=== PATIENT | female | born 1965 | race Caucasian/White ===

== ENCOUNTER → 2021-03-17 16:52 | Outpatient (CLI) | payer OTHER, SELFPAY ==
[2021-03-17 17:08] LABS: Bacteria Urine None Seen; WBC Urine None Seen (0-5/HPF)
[2021-03-17 18:02] LABS: Appearance Urine UA CLEAR; Bilirubin Urine UA NEGATIVE (NEGATIVE); Color Urine UA YELLOW; Glucose Urine UA NEGATIVE (Negative); Ketones Urine UA NEGATIVE (NEGATIVE); Leukocyte Esterase Urine UA NEGATIVE (NEGATIVE); Nitrite Urine UA NEGATIVE (Negative); Occult Blood Urine UA 1+ (Negative); Protein Urine UA NEGATIVE (Negative); Urobilinogen Urine UA 0.2 E.U./dL (0.2)
[2021-03-17 18:04] LABS: Add Manual Diff / Slide Review NO; Basophils Absolute Auto 100 /uL (0-100); Basophils Percent Auto 0.7 % (0-2); Eosinophils Absolute Auto 200 /uL (0-450); Eosinophils Percent Auto 2.3 % (2-4); Hematocrit 44.1 % (36-46); Hemoglobin 14.8 g/dL (12.0-16.0); Lymphocytes Absolute Auto 2500 /uL (1100-4500); Lymphocytes Percent Auto 27.5 % (25-40); Mean Corpuscular HGB Conc 33.7 % (30-36); Mean Corpuscular Hemoglobin 30.8 PG (26-34); Mean Corpuscular Volume 91.6 fL (80-100); Monocytes Absolute Auto 600 /uL (0-900); Monocytes Percent Auto 6.7 % (3-14); Neutrophils Absolute Auto 5600 /uL (1500-7000); Neutrophils Percent Auto 62.8 % (50-75); Platelet Count 212 X10^3/uL (150-400); Red Blood Cell Count 4.81 X10^6/uL (4.0-5.2); Red Cell Distribution Width 13.1 % (11.6-14.8); White Blood Cell Count 8.9 X10^3/uL (4.5-11.0)
[2021-03-17 18:14] LABS: Hemoglobin A1C% w Est Avg Glu 5.2 % (4.0-6.0)
[2021-03-17 18:15] LABS: Blood Urea Nitrogen 17 mg/dL (7-17); Calcium 9.6 mg/dL (8.4-10.2); Carbon Dioxide 28 mmol/L (22-32); Chloride 106 mmol/L (98-107); Estimated Glomerular Filt Rate > 60.0 mL/min (>60); Glucose 96 mg/dL (70-100); HEMOLYSIS < 15 (0-50); Potassium 3.8 mmol/L (3.4-5.1); Sodium 141 mmol/L (137-145)
[2021-03-17 18:21] LABS: Culture Indicated Urine Cult Not Indicated; RBC Urine 1-5/HPF (0-5/HPF)
== END ==
PROVIDERS: Referring Provider Orthopaedic Surgery; Visit Provider Orthopaedic Surgery
DX: Z01.818 Encounter for other preprocedural examination (principal); Z01.812 Encounter for preprocedural laboratory examination; R73.9 Hyperglycemia, unspecified; N39.0 Urinary tract infection, site not specified
CPT/HCPCS: 36415; 80048; 81001; 83036; 85025; 93005; 93010

== ENCOUNTER → 2023-06-09 14:29 | Outpatient (CLI) | payer OTHER, SELFPAY ==
--- NOTE | 2023-06-09 | DI.CT.S_ITS ---
PROCEDURE: CT SINUS SCREEN WO CON INDICATIONS: Chronic pansinusitis TECHNIQUE: Noncontrast 3.0 mm axial images acquired from the frontal sinuses to the mid-sella, with coronal and sagittal reformats. For radiation dose reduction, the following was used: automated exposure control, adjustment of mA and/or kV according to patient size. COMPARISON: None. FINDINGS: Image quality: Excellent. Sinuses: Sinuses are clear. No fluid levels. No mucous retention cysts or polyps. 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 Ostiomeatal Complexes: Ostiomeatal complexes are patent. Miscellaneous: Visualized intra-orbital contents are normal. No esperanza bullosa or paradoxical turbinate curvature. Rightward nasal septal deviation. IMPRESSION: Sinuses and ostiomeatal complexes are clear. Dictated by: Darlyn Salguero M.D. on 06/09/2023 at 15:30 Approved by: Darlyn Salguero M.D. on 06/09/2023 at 15:32
[2023-06-09 17:03] LABS: Add Manual Diff / Slide Review NO; Basophils Absolute Auto 100 /uL (0-100); Basophils Percent Auto 0.9 % (0-2); Eosinophils Absolute Auto 200 /uL (0-450); Eosinophils Percent Auto 2.8 % (2-4); Hematocrit 42.3 % (36-46); Hemoglobin 14.5 g/dL (12.0-16.0); Lymphocytes Absolute Auto 2600 /uL (1100-4500); Lymphocytes Percent Auto 32.7 % (25-40); Mean Corpuscular HGB Conc 34.2 % (30-36); Mean Corpuscular Hemoglobin 30.9 PG (26-34); Mean Corpuscular Volume 90.3 fL (80-100); Monocytes Absolute Auto 500 /uL (0-900); Monocytes Percent Auto 6.7 % (3-14); Neutrophils Absolute Auto 4500 /uL (1500-7000); Neutrophils Percent Auto 56.9 % (50-75); Platelet Count 226 X10^3/uL (150-400); Red Blood Cell Count 4.68 X10^6/uL (4.0-5.2); Red Cell Distribution Width 12.9 % (11.6-14.8); White Blood Cell Count 7.9 X10^3/uL (4.5-11.0)
[2023-06-09 17:12] LABS: BUN Creatinine Ratio 22.4 (6-22); Blood Urea Nitrogen 15 mg/dL (7-17); Calcium 9.7 mg/dL (8.4-10.2); Carbon Dioxide 28 mmol/L (22-32); Chloride 102 mmol/L (98-107); Estimated Glomerular Filt Rate > 60 mL/min (>60); Glucose 90 mg/dL (70-100); HEMOLYSIS < 15 (0-50); Sodium 140 mmol/L (137-145)
[2023-06-09 17:18] LABS: Hemoglobin A1C% w Est Avg Glu 5.5 % (4.0-6.0)
[2023-06-09 18:28] LABS: Appearance Urine UA CLEAR; Bilirubin Urine UA NEGATIVE (NEGATIVE); Color Urine UA YELLOW; Glucose Urine UA NEGATIVE (Negative); Ketones Urine UA NEGATIVE (NEGATIVE); Leukocyte Esterase Urine UA NEGATIVE (NEGATIVE); Nitrite Urine UA NEGATIVE (Negative); Occult Blood Urine UA TRACE-INTACT (Negative); Protein Urine UA NEGATIVE (Negative); Specific Gravity Urine UA 1.015 (1.000-1.035); Urobilinogen Urine UA 0.2 E.U./dL (0.2)
[2023-06-09 18:35] LABS: pH Urine UA 6.5 (4.5-8.0)
[2023-06-09 19:32] LABS: Bacteria Urine None Seen; Culture Indicated Urine Cult Not Indicated; RBC Urine None Seen (0-5/HPF); Squamous Epithelial Cell Urine None Seen (0-5/HPF); WBC Urine None Seen (0-5/HPF)
== END ==
PROVIDERS: Referring Provider Otolaryngology; Visit Provider Otolaryngology
DX: Z01.818 Encounter for other preprocedural examination (principal); Z01.812 Encounter for preprocedural laboratory examination; J32.4 Chronic pansinusitis; J34.89 Other specified disorders of nose and nasal sinuses; G44.89 Other headache syndrome; R09.82 Postnasal drip; R73.9 Hyperglycemia, unspecified; N39.0 Urinary tract infection, site not specified
CPT/HCPCS: 36415; 70486; 80048; 81001; 83036; 85025; 93005; 93010

== ENCOUNTER 2023-12-19 21:26 | Emergency (ER) | payer OTHER, SELFPAY ==
[2023-12-19] VITALS (7 sets, daily range): BP systolic 131–184; BP diastolic 63–85; PULSE 69–89; RESP 18; TEMP 37.3; O2SAT 95–98; BMI 39.4
--- NOTE | 2023-12-19 23:21 | ED.SKABFB ---
HPI - Skin/Abscess/Foreign Bdy General Chief complaint: Skin/Abscess/Foreign Body Stated complaint: possible allergic reaction Time Seen by Provider: 12/19/23 21:30 Source: patient Mode of arrival: Ambulatory Limitations: no limitations History of Present Illness HPI narrative: 58-year-old female presents for evaluation of possible allergic reaction. Patient underwent knee replacement surgery at [facility] approximately 1 week ago. She states that since then she has been wearing a compression stocking that she believes is too small, with an Edson wrap over the compression stocking. Approximately 2 days ago she started to have an itching rash behind her right leg. Patient concerned that she may have had an allergic reaction to 1 of the medications she has been given. She has been taking Tylenol, meloxicam, aspirin, and oxycodone for pain at home. After reading the bottle information of all of her medications she and her has been were concerned that she may be having an allergic reaction to Tylenol. Patient denies nausea, vomiting, difficulty breathing, tongue or lip swelling. Patient states that she has and agitation reaction to Benadryl and has not taken any of this medication at home. Related Data Allergies Allergy/AdvReac Type Severity Reaction Status Date / Time narcotics AdvReac Nausea Uncoded 12/19/23 21:40 Review of Systems Review of Systems Narrative: See HPI Patient History Social History Smoking Status: Never smoker Smoking Status: Never smoker alcohol intake frequency: holidays/special occasions only Substance Use Type: does not use Exam Initial Vital Signs Initial Vital Signs: Vital Signs Pulse Rate 89 12/19/23 21:33 Pulse Oximetry 97 12/19/23 21:33 Const: Awake, alert, no acute distress, nontoxic appearing Cardiac: regular rate, regular rhythm RESP: unlabored, clear bilaterally, no wheezing GI: Soft, nontender, nondistended, no rebound, no guarding MSK: Clean, dry dressing over right knee replacement surgical site, dependent bruising noted at thigh and lower extremity Skin: intact, erythematous, itching rash over posterior R thigh and posterior knee with defined margins. Neuro: AO x3, CN II-XII grossly intact, moves all extremities Course Orders Ordered: Discontinued Medications Dexamethasone (Dexamethasone 10 Mg/Ml Vial) 10 mg IV NOW ONE Stop: 12/19/23 23:15 Last Admin: 12/19/23 23:33 Dose: 10 mg Documented By: STAN Famotidine (Famotidine 20 Mg/2 Ml Vial) 20 mg IV NOW AYDE Last Admin: 12/19/23 23:36 Dose: 20 mg Documented By: STAN Vital Signs Vital signs: Vital Signs - 8 hr 12/19/23 21:33 12/19/23 21:34 12/19/23 21:40 Temperature 99.1 F Pulse Rate 89 87 88 Respiratory Rate 18 Blood Pressure 184/85 H Pulse Oximetry 97 96 96 Oxygen Delivery Method Room Air 12/19/23 22:00 12/19/23 22:00 12/19/23 22:30 Temperature Pulse Rate 82 Respiratory Rate Blood Pressure 141/71 H 131/63 Pulse Oximetry 95 Oxygen Delivery Method 12/19/23 22:30 12/19/23 23:00 12/19/23 23:00 Temperature Pulse Rate 74 71 Respiratory Rate Blood Pressure 149/69 H Pulse Oximetry 97 98 Oxygen Delivery Method 12/19/23 23:30 Temperature Pulse Rate 69 Respiratory Rate 18 Blood Pressure Pulse Oximetry 98 Oxygen Delivery Method MDM - Skin/Abscess/Foreign Bdy Differential Diagnosis Differential diagnosis: Likely abscess of skin or subcutaneous tissue, viral exanthem and dermatophytosis MDM Narrative Medical decision making narrative: Possible allergic reaction. Patient was concerned that this may be related to Tylenol, however the rash is very localized and only on the posterior aspect of the patient's distal right thigh, posterior knee, and upper right calf. Superior margin is well defined and quite possibly related to compression stocking worn after her procedure. Patient states she was unable to take Benadryl due to agitation, however steroids were ordered which should help patient's symptoms. Patient advised to follow up with her orthopedic doctor and to apply steroid cream that can be purchased [id number] to the area of the rash. Advised patient that this is likely not an allergic reaction to Tylenol and encouraged to continue to take this medication for pain as needed Discharge Plan Departure Patient Disposition: Home Clinical Impression: Allergic reaction Instructions: DI for Contact Dermatitis Activity Restrictions/Additional Instructions: Continue to take your home pain medications as prescribed. You may use over the counter bendaryl or steroid cream for itching. Follow up with your orthopedic doctor Referrals: Danielle Faria ARNP [Primary Care Provider] - Stand Alone Forms: Patient Portal/API
[2023-12-19] MEDS: DEXAMETHASONE 10 MG/ML VIAL IV (23:33)
[2023-12-19] MEDS: FAMOTIDINE 20 MG/2 ML VIAL IV (23:36)
[2023-12-20 00:17] VITALS: BP 165/81; PULSE 69; RESP 16; O2SAT 98
== END 2023-12-20 00:19 | disposition home or self-care (01) ==
PROVIDERS: Emergency Provider Emergency Medicine; PCP Nurse Practitioner Family
DX: T78.40XA Allergy, unspecified, initial encounter (principal)
CPT/HCPCS: 96374; 96375; 99283; J1100

== ENCOUNTER → 2025-02-04 14:23 | Outpatient (CLI) | payer OTHER, SELFPAY ==
--- NOTE | 2025-02-04 14:25 | DI.MG.S_ITS ---
MM screening mammo BI: 02/04/2025. BI-RADS: 0 CLINICAL: 59-year old female for bilateral screening mammogram. Tyrer-Cuzick lifetime risk of 16.8%. Current reported family history of breast cancer: sister. PRIOR EXAMS: 09/24/2020. MAMMOGRAPHY TECHNIQUE: 2D and 3D (tomosynthesis) digital mammographic views obtained, with additional images as needed for full coverage. Current study was also evaluated with a Computer Aided Detection (CAD) system. DENSITY B. There are scattered areas of fibroglandular density. MAMMOGRAPHY FINDINGS Right: Central, Retroareolar, Far Anterior depth: Focal asymmetry needing additional imaging evaluation. Left: Upper Inner Quadrant, Middle depth: Calcifications needing additional imaging evaluation. IMPRESSION: Right (Asymmetry): Central, Retroareolar, Far Anterior depth * Incomplete - focal asymmetry needing additional imaging evaluation. Left (Calcification): Upper Inner Quadrant, Middle depth * Incomplete - calcification needing additional imaging evaluation. RECOMMENDATIONS Right: Central, Retroareolar, Far Anterior depth * Further evaluation with diagnostic mammography and diagnostic ultrasound. Ultrasound to be performed only if needed. Left: Upper Inner Quadrant, Middle depth * Further evaluation with diagnostic mammography. OVERALL ASSESSMENT CATEGORY BI-RADS-0: Incomplete - Need Additional Imaging Evaluation. ELECTRONICALLY SIGNED: Leonor Barrera M.D. on 02/04/2025 at 03:56:06 PM PT Interpreting Station ID: [id number]
== END ==
PROVIDERS: PCP Nurse Practitioner Family; Referring Provider Nurse Practitioner; Visit Provider Nurse Practitioner
DX: Z12.31 Encounter for screening mammogram for malignant neoplasm of breast (principal); Z80.3 Family history of malignant neoplasm of breast
CPT/HCPCS: 77063; 77067

== ENCOUNTER → 2025-02-20 09:20 | Outpatient (CLI) | payer OTHER, SELFPAY ==
--- NOTE | 2025-02-20 09:21 | DI.MG.S_ITS ---
US breast BI limited, MM diagnostic mammo BI: 02/20/2025 BI-RADS: 4C CLINICAL: 59-year old female for bilateral diagnostic mammogram and bilateral diagnostic breast ultrasound that is a recall from screening on 02/04/2025. Tyrer-Cuzick lifetime risk of 16.8%. Current reported family history of breast cancer: sister. PRIOR EXAMS Mammogram(s): 02/04/2025, 09/24/2020. MAMMOGRAPHY TECHNIQUE: 2D and 3D (tomosynthesis) digital mammographic views obtained, with additional images as needed for full coverage. Current study was also evaluated with a Computer Aided Detection (CAD) system. ULTRASOUND TECHNIQUE Real-time silva scale and color doppler imaging of the area of clinical interest was performed with image documentation. TARGETED Bilateral Breast Ultrasound: Real-time ultrasound exam was performed focused to area of clinical and/or imaging concern. DENSITY B. There are scattered areas of fibroglandular density. MAMMOGRAPHY FINDINGS Right (finding-1): Central, Retroareolar, Far Anterior depth, measuring 0.8cm: There is a circumscribed, oval, equal-density mass present. Left: Upper Inner at 11:00, Middle depth, measuring 3.3cm: There are suspicious fine pleomorphic calcifications in segmental distribution. ULTRASOUND FINDINGS Right (finding-1): Upper at 12:00, 1 cm from nipple, measuring 0.7 x 0.3 x 0.9 cm. Previous report: Central: Correlating with findings on mammogram there is a complicated cyst present. Left: Upper Inner at 11:00, 8 cm from nipple, measuring 0.3 x 0.2 x 0.2 cm: There is a complicated cyst present. This is an incidental finding. No definite sonographic correlate for the calcifications seen on mammogram. Left: Inner at 9:00, 2 cm from nipple, measuring 0.5 x 0.3 x 0.5 cm: There is a complicated cyst present. This is an incidental finding. IMPRESSION: Right (Complicated Cyst): Upper at 12:00, 1 cm from nipple, measuring 0.7 x 0.3 x 0.9 cm. Previous report: Central * Probably Benign. Left (Calcification): Upper Inner at 11:00, Middle depth, measuring 3.3cm * High Suspicion for Malignancy. Left (Complicated Cyst): Upper Inner at 11:00, 8 cm from nipple, measuring 0.3 x 0.2 x 0.2 cm * Probably Benign. Left (Complicated Cyst): Inner at 9:00, 2 cm from nipple, measuring 0.5 x 0.3 x 0.5 cm * Probably Benign. RECOMMENDATIONS Right: Upper at 12:00, 1 cm from nipple * Six month followup with diagnostic ultrasound and diagnostic mammography. Left: Upper Inner at 11:00, 8 cm from nipple * Six month followup with diagnostic ultrasound and diagnostic mammography. Mammography to be performed only if needed. Left: Inner at 9:00, 2 cm from nipple * Six month followup with diagnostic ultrasound and diagnostic mammography. Mammography to be performed only if needed. Left: Upper Inner at 11:00, Middle depth * Stereotactic-guided biopsy for further evaluation. COMMENTS: Findings and recommendations were conveyed to the patient during today's evaluation over the phone by Dr. Barrera. OVERALL ASSESSMENT CATEGORY BI-RADS-4: Suspicious. PRELIMINARILY ELECTRONICALLY SIGNED: Leonor Barrera M.D. on 02/20/2025 at 01:04:26 PM PT ELECTRONICALLY SIGNED: Leonor Barrera M.D. on 02/20/2025 at 02:19:20 PM PT Interpreting Station ID: [id number]
== END ==
LOC: MAMMO 09:20
PROVIDERS: PCP Nurse Practitioner Family; Referring Provider Nurse Practitioner Family; Visit Provider Nurse Practitioner
DX: R92.2 Inconclusive mammogram (principal); R92.1 Mammographic calcification found on diagnostic imaging of breast; N60.02 Solitary cyst of left breast; N60.01 Solitary cyst of right breast; Z80.3 Family history of malignant neoplasm of breast
CPT/HCPCS: 76642; 77066; G0279